=== PATIENT | female | born 2000 | race Caucasian/White ===

== ENCOUNTER 2020-01-19 21:59 | Outpatient (CLI) | payer MEDICAID, SELFPAY ==
[2020-01-19 22:35] VITALS: BP 119/79; PULSE 102; RESP 16; TEMP 36.9; O2SAT 95; BMI 25.0
[2020-01-19 22:50] VITALS: BMI 25.0
[2020-01-19 22:55] LABS: Microscopic, Urine URINE MICROSCOPIC (MICROSCOPIC)
[2020-01-19 23:07] LABS: Appearance,Urine CLEAR (Clear); Bilirubin,Urine Negative (Negative); Blood, Urine Negative (Negative); Color,Urine YELLOW (Yellow); Glucose,Urine (UA) Negative (Negative); Ketones,Urine Negative (Negative); Leukocyte Esterase,Urine Negative (Negative); Nitrate,Urine Negative (Negative); Protein,Urine Negative (Negative); Urobilinogen,Urine 0.2 EU/dl (0.2)
[2020-01-19 23:11] LABS: Bacteria,Urine Trace /lpf; WBC,Urine Occasional #/hpf (0-3)
[2020-01-19 23:12] LABS: Barbiturates Screen,Urine Negative ng/ml (<200)
[2020-01-19 23:13] LABS: Amphetamine/Metha Screen,Urine Negative ng/ml (<1000); Benzodiazepines Screen,Urine Negative ng/ml (<200)
[2020-01-19 23:14] LABS: Cocaine Screen,Urine Negative ng/ml (<300)
[2020-01-19 23:15] LABS: Cannabinoid Screen,Urine Negative ng/ml (<50); Methadone Screen,Urine Negative ng/ml (<300)
[2020-01-19 23:16] LABS: Opiate Screen,Urine Negative ng/ml (<300); Phencyclidine Screen,Urine Negative ng/ml (<25)
== END 2020-01-19 23:30 | disposition home or self-care (01) ==
LOC: OBOUT 22:03 → OB 22:07
PROVIDERS: Visit Provider Nurse Practitioner Obstetrics & Gynecology
DX: O36.8120 Decreased fetal movements, second trimester, not applicable or unspecified (principal); Z3A.25 25 weeks gestation of pregnancy
CPT/HCPCS: 59025; 80305; 81001